=== PATIENT | male | born 1950 | race African-American/Black ===

== ENCOUNTER 2022-11-11 22:56 | Inpatient (IN) | payer MEDICAID, MEDICARE ==
[~2022-11-11] VITALS: Ht 180.3 cm; Wt 70.8 kg
[2022-11-12 00:07] LABS: BASOPHILS % 0.2 % (0.0-2.0); EOSINOPHILS % 5.2 % (0.0-5.0); HEMATOCRIT. 36.3 % (42.0-52.0); HEMOGLOBIN. 11.8 g/dL (14.0-18.0); LYMPHOCYTES % 27.5 % (20.0-50.0); MEAN CORPUSCULAR HEMOGLOBIN 29.7 pg (28.0-32.0); MEAN CORPUSCULAR HGB CONC 32.5 g/dL (31.0-37.0); MEAN CORPUSCULAR VOLUME 91.3 fL (80.0-94.0); MEAN PLATELET VOLUME 7.5 fl (7.4-10.4); MONOCYTES % 6.7 % (2.0-8.0); NEUTROPHILS % 60.4 % (40.0-76.0); PLATELET 199 x1000/uL (130-400); RED BLOOD CELL COUNT 3.97 mill/uL (4.7-6.1); WHITE BLOOD COUNT 8.6 x1000/uL (4.5-11.0)
[2022-11-12 00:18] LABS: CHLORIDE 102 mEq/L (98-107); INDEX HEMOLYSI 1 (1-3); INDEX ICTERIC 1 (1-4); INDEX LIPEMIC 1 (1-3); POTASSIUM 4.7 mEq/L (3.5-5.1); SODIUM 137 mEq/L (136-145)
[2022-11-12 00:31] LABS: ALANINE AMINOTRANSFERASE 12 IU/L (13-61); ALBUMIN 3.2 g/dL (3.4-5.0); ASPARTATE AMINOTRANSFERASE 10 IU/L (15-37); BILIRUBIN TOTAL 0.4 mg/dL (0.1-1.0); CALCIUM 9.1 mg/dL (8.5-10.1); CARBON DIOXIDE 31 mEq/L (21-32); CREATININE 0.7 mg/dL (0.6-1.3); GLUCOSE 95 mg/dL (70-105); NT PRO B-TYPE NATRIURETIC PEP 202 pg/mL (5-125); PROTEIN TOTAL 7.1 g/dL (6.0-8.3); TROPONIN I HIGH SENSITIVITY 6 ng/L (<78); UREA NITROGEN BLOOD 18 mg/dL (7-21)
[2022-11-12] MEDS ORDERED: ALBUTEROL (0.083%) 2.5MG/3ML NEB HHN STA (00:40)
[2022-11-12] MEDS ORDERED: METHYLPREDNISOLONE SOD SUCC 125MG/2ML (ACT-O-VIAL) IV STA (00:40)
[2022-11-12] MEDS ORDERED: IPRATROPIUM BROMIDE (0.02%) 0.5MG/2.5ML NEB HHN STA (00:40)
[2022-11-12 02:03] VITALS: PULSE 84; RESP 24; O2SAT 97
[2022-11-12 09:40] VITALS: BP 162/75; PULSE 66; RESP 19; TEMP 97.2
[2022-11-12] MEDS ORDERED: AMLODIPINE 10MG TABLET PO SCH (11:00)
[2022-11-12 12:00] VITALS: BP 138/88; PULSE 20; RESP 20; TEMP 97.8
[2022-11-12] MEDS ORDERED: IPRATROPIUM/ALBUTEROL 0.5-3(2.5)MG/3ML NEB HHN SCH (12:00)
[2022-11-12] MEDS ORDERED: FAMOTIDINE 20MG TABLET PO SCH ×2 (12:00→21:00)
[2022-11-12] MEDS ORDERED: METHYLPREDNISOLONE SOD SUCC 40MG/ML (ACT-O-VIAL) IV SCH (14:00)
[2022-11-12 16:00] VITALS: BP 152/89; PULSE 86; RESP 20; TEMP 97.5
[2022-11-12 17:04] VITALS: BP 152/89; PULSE 94; TEMP 97.5; O2SAT 86
== END 2022-11-12 17:45 | disposition home or self-care (01) | DRG 189 ==
LOC: ER 22:56 → 7WST 11-12 01:38
PROVIDERS: ADMIT Internal Medicine; ATTEND Internal Medicine
DX: J96.00 Acute respiratory failure, unspecified whether with hypoxia or hypercapnia (principal); J44.1 Chronic obstructive pulmonary disease with (acute) exacerbation; F17.210 Nicotine dependence, cigarettes, uncomplicated; R13.10 Dysphagia, unspecified; N40.0 Benign prostatic hyperplasia without lower urinary tract symptoms; I10 Essential (primary) hypertension; Z86.73 Personal history of transient ischemic attack (TIA), and cerebral infarction without residual deficits; Z85.118 Personal history of other malignant neoplasm of bronchus and lung
CPT/HCPCS: 36415; 71045; 80053; 83880; 84484; 85025; 93005; 94640; 99285; J2920; J2930

== ENCOUNTER 2024-03-23 17:19 | Inpatient (IN) | payer MEDICARE ==
[~2024-03-23] VITALS: Ht 182.9 cm; Wt 66.2 kg
[~2024-03-23 17:19] MED LIST: AMOX1TAB16 MT; APIX5TAB PO; ATOR10TA PO; AZIT500T8 MT; FLUT1DIS3 INH; METH4TAB95 MT
[2024-03-23] MEDS: METHYLPREDNISOLONE SOD SUCC 125MG/2ML (ACT-O-VIAL) IV ONE (18:03)
[2024-03-23 18:10] LABS: BASOPHILS % 0.6 % (0.0-2.0); DIFFERENTIAL COMMENT 0; EOSINOPHILS % 0.5 % (0.0-5.0); HEMATOCRIT. 38.4 % (42.0-52.0); HEMOGLOBIN. 11.9 g/dL (14.0-18.0); LYMPHOCYTES % 14.2 % (20.0-50.0); MEAN CORPUSCULAR HEMOGLOBIN 31.3 pg (28.0-32.0); MEAN CORPUSCULAR VOLUME 100.9 fL (80.0-94.0); MONOCYTES % 6.7 % (2.0-8.0); PLATELET 185 x1000/uL (130-400); RED BLOOD CELL COUNT 3.81 mill/uL (4.7-6.1); RED CELL DISTRIBUTION WIDTH 16.6 % (11.6-14.6); WHITE BLOOD COUNT 5.2 x1000/uL (4.5-11.0)
[2024-03-23 18:18] LABS: CHLORIDE 106 mEq/L (98-107); POTASSIUM 6.1 mEq/L (3.5-5.1); SODIUM 143 mEq/L (136-145)
[2024-03-23 18:19] LABS: CALCIUM 9.1 mg/dL (8.7-10.4); CARBON DIOXIDE 34 mEq/L (21-32)
[2024-03-23 18:24] LABS: CREATININE 0.7 mg/dL (0.6-1.3); GLUCOSE 102 mg/dL (70-105); UREA NITROGEN BLOOD 12 mg/dL (9-23)
[2024-03-23 18:25] LABS: TROPONIN I HIGH SENSITIVITY 11 ng/L (3.0-53)
[2024-03-23 20:13] LABS: CHLORIDE 116 mEq/L (98-107); SODIUM 148 mEq/L (136-145)
[2024-03-23 20:14] LABS: CARBON DIOXIDE 26 mEq/L (21-32)
[2024-03-23 20:15] LABS: CALCIUM 6.6 mg/dL (8.7-10.4)
[2024-03-23 20:19] LABS: CREATININE 0.5 mg/dL (0.6-1.3); GLUCOSE 123 mg/dL (70-105); UREA NITROGEN BLOOD 10 mg/dL (9-23)
[2024-03-23] MEDS: IPRATROPIUM/ALBUTEROL 0.5-3(2.5)MG/3ML NEB HHN ONE (20:33)
[2024-03-23 20:36] LABS: POTASSIUM 3.4 mEq/L (3.5-5.1)
[2024-03-23] MEDS ORDERED: HYDRALAZINE 20MG/ML VIAL IV PRN (23:30)
[2024-03-23] MEDS ORDERED: ONDANSETRON HCL 4MG/2ML INJ IV PRN (23:30)
[2024-03-23] MEDS ORDERED: DEXTROSE 50% WATER 50ML SYRINGE IV PRN (23:30)
[2024-03-23] MEDS ORDERED: DOCUSATE SODIUM 100MG CAPSULE PO PRN (23:30)
[2024-03-24] VITALS (9 sets, daily range): BP systolic 110–137; BP diastolic 67–88; PULSE 73–95; RESP 18–20; TEMP 36.2–36.8; O2SAT 96–100
[2024-03-24] MEDS ORDERED: IPRATROPIUM BROMIDE (0.02%) 0.5MG/2.5ML NEB HHN PRN (00:15)
[2024-03-24 00:27] LABS: IRON 25 ug/dL (65-175)
[2024-03-24 00:28] LABS: CREATINE KINASE MB FRACTION 1.2 ng/mL (0.5-3.6); LDL CHOLESTEROL 57 mg/dL (5-100); TRIGLYCERIDE 46 mg/dL (0-150); TROPONIN I HIGH SENSITIVITY 10 ng/L (3.0-53)
[2024-03-24 00:29] LABS: CREATINE KINASE 31 IU/L (46-171); HDL CHOLESTEROL 48 mg/dL (>55)
[2024-03-24 00:30] LABS: CHOLESTEROL 124 mg/dL (<200); PHOSPHORUS 3.2 mg/dL (2.5-4.9); TOTAL IRON BINDING CAPACITY 274 ug/dl (250-425)
[2024-03-24 00:32] LABS: FERRITIN 255 ng/mL (22-322); T4 FREE 0.94 ng/dL (0.89-1.76); THYROID STIMULATING HORMONE 0.39 uIU/mL (0.55-4.78); VITAMIN B12 SERUM 799 pg/mL (211-911)
[2024-03-24] MEDS: ACETAMINOPHEN 325MG TABLET PO PRN (01:01)
[2024-03-24 01:18] LABS: CLARITY URINE CLEAR (CLEAR); COLOR URINE DARK YELLOW (YELLOW); GLUCOSE URINE 1+ (NEGATIVE); KETONES URINE NEGATIVE (NEGATIVE); LEUKOCYTE ESTERASE URINE NEGATIVE (NEGATIVE); NITRITE URINE NEGATIVE (NEGATIVE); OCCULT BLOOD URINE NEGATIVE (NEGATIVE); PROTEIN URINE 1+ (NEGATIVE); SPECIFIC GRAVITY URINE 1.028 (1.005-1.030)
[2024-03-24 01:32] LABS: *AMPHETAMINES SCREEN URINE NEGATIVE (NEGATIVE); *BARBITURATES SCREEN URINE NEGATIVE (NEGATIVE); *BENZODIAZEPINES SCREEN URINE NEGATIVE (NEGATIVE); *COCAINE SCREEN URINE NEGATIVE (NEGATIVE)
[2024-03-24 01:33] LABS: CANNABINOID URINE SCREEN PRESUMPTIVE POSITIVE (NEGATIVE); ECSTASY MDMA SCREEN URINE NEGATIVE (NEGATIVE); METHADONE URINE SCREEN NEGATIVE (NEGATIVE); OPIATES URINE SCREEN PRESUMPTIVE POSITIVE (NEGATIVE); PHENCYCLIDINE URINE SCREEN NEGATIVE (NEGATIVE)
[2024-03-24] MEDS ORDERED: HYDR-4001 PO (01:50)
[2024-03-24] MEDS ORDERED: VALS160T28 PO (01:50)
[2024-03-24 02:06] LABS: MUCUS URINE 1+ /lpf (NONE/TRACE); SQUAMOUS EPITHELIAL CELL URINE FEW /lpf (RARE/1+)
[2024-03-24 02:07] LABS: BACTERIA URINE TRACE; RBC URINE 0-2 /hpf (0-2); WBC URINE 0-2 /hpf (0-2)
[2024-03-24] MEDS: DEXTROSE 5% WATER 1,000 ML IV NR (02:45)
[2024-03-24] MEDS: POTASSIUM CHLORIDE 20MEQ TABLET SR PO NR (02:52)
[2024-03-24] MEDS: MAGNESIUM 2 G PREMIX 50 ML IV NR (04:00)
[2024-03-24] MEDS: METHYLPREDNISOLONE SOD SUCC 40MG/ML (ACT-O-VIAL) IV SCH (05:58)
[2024-03-24 06:12] LABS: CARBON DIOXIDE 35 mEq/L (21-32); CHLORIDE 104 mEq/L (98-107); POTASSIUM 4.6 mEq/L (3.5-5.1); SODIUM 143 mEq/L (136-145)
[2024-03-24 06:13] LABS: CALCIUM 8.7 mg/dL (8.7-10.4)
[2024-03-24 06:17] LABS: CREATININE 0.7 mg/dL (0.6-1.3)
[2024-03-24 06:18] LABS: GLUCOSE 246 mg/dL (70-105); UREA NITROGEN BLOOD 14 mg/dL (9-23)
[2024-03-24 06:19] LABS: ALANINE AMINOTRANSFERASE 9 IU/L (10-49); ALBUMIN 3.3 g/dL (3.2-4.8)
[2024-03-24 06:20] LABS: ASPARTATE AMINOTRANSFERASE 11 IU/L (<34); BILIRUBIN TOTAL 0.5 mg/dL (0.1-1.0)
[2024-03-24 06:47] LABS: BASOPHILS % 0.2 % (0.0-2.0); HEMATOCRIT. 35.5 % (42.0-52.0); HEMOGLOBIN. 11.2 g/dL (14.0-18.0); LYMPHOCYTES % 11.9 % (20.0-50.0); MEAN CORPUSCULAR HEMOGLOBIN 31.3 pg (28.0-32.0); MEAN CORPUSCULAR HGB CONC 31.5 g/dL (31.0-37.0); MEAN CORPUSCULAR VOLUME 99.2 fL (80.0-94.0); MEAN PLATELET VOLUME 7.7 fl (7.4-10.4); MONOCYTES % 1.8 % (2.0-8.0); NEUTROPHILS % 86.1 % (40.0-76.0); PLATELET 190 x1000/uL (130-400); RED BLOOD CELL COUNT 3.58 mill/uL (4.7-6.1); RED CELL DISTRIBUTION WIDTH 15.5 % (11.6-14.6); WHITE BLOOD COUNT 2.8 x1000/uL (4.5-11.0)
[2024-03-24] MEDS: BLOOD SUGAR DIAGNOSTIC STRIP TEST SCH (07:21)
[2024-03-24] MEDS: APIXABAN 5 MG TABLET PO SCH (08:27)
[2024-03-24] MEDS: AZITHROMYCIN 500 MG TABLET PO SCH (08:27)
[2024-03-24] MEDS: IPRATROPIUM BROMIDE (0.02%) 0.5MG/2.5ML NEB HHN SCH (09:01)
[2024-03-24] MEDS: ACETYLCYSTEINE 200MG/ML 20% VIAL 4ML INH SCH (09:01)
[2024-03-24] MEDS: FERROUS SULFATE 325MG TABLET PO NR (09:15)
[2024-03-24] MEDS ORDERED: NALOXONE HCL 0.4MG/ML VIAL IV PRN (12:30)
[2024-03-24] MEDS: INSULIN LISPRO 100 UNITS/ML SUBCUT SCH (13:29)
[2024-03-24] MEDS: HYDROCODONE/ACETAMINOPHEN 5/325MG TABLET PO PRN (17:06)
[2024-03-24] MEDS: ATORVASTATIN CALCIUM 10MG TABLET PO SCH (21:12)
[2024-03-25] VITALS (11 sets, daily range): BP systolic 126–145; BP diastolic 80–93; PULSE 73–92; RESP 16–20; TEMP 36.2–36.5; O2SAT 94–98
[2024-03-25 06:30] LABS: CHLORIDE 100 mEq/L (98-107); POTASSIUM 5.4 mEq/L (3.5-5.1); SODIUM 137 mEq/L (136-145)
[2024-03-25 06:31] LABS: CARBON DIOXIDE 36 mEq/L (21-32)
[2024-03-25 06:36] LABS: CREATININE 0.7 mg/dL (0.6-1.3); GLUCOSE 134 mg/dL (70-105); UREA NITROGEN BLOOD 16 mg/dL (9-23)
[2024-03-25 06:37] LABS: ALANINE AMINOTRANSFERASE 11 IU/L (10-49)
[2024-03-25 06:38] LABS: ALBUMIN 3.2 g/dL (3.2-4.8); ASPARTATE AMINOTRANSFERASE 16 IU/L (<34)
[2024-03-25 06:39] LABS: BILIRUBIN TOTAL 0.4 mg/dL (0.1-1.0); PROTEIN TOTAL 5.5 g/dL (6.0-8.3)
[2024-03-25] MEDS: SODIUM ZIRCONIUM CYCLOSILICATE 10GM/PACKET PO NR (08:32)
[2024-03-25 09:09] LABS: FOLATE HEMATOCRIT 36.5 % (37.5-51.0)
[2024-03-25 11:23] LABS: HEMATOCRIT. 35.2 % (42.0-52.0); HEMOGLOBIN. 11.2 g/dL (14.0-18.0); MEAN CORPUSCULAR HEMOGLOBIN 31.3 pg (28.0-32.0); MEAN CORPUSCULAR HGB CONC 31.7 g/dL (31.0-37.0); MEAN CORPUSCULAR VOLUME 98.5 fL (80.0-94.0); MEAN PLATELET VOLUME 7.9 fl (7.4-10.4); PLATELET 208 x1000/uL (130-400); RED BLOOD CELL COUNT 3.58 mill/uL (4.7-6.1); RED CELL DISTRIBUTION WIDTH 15.1 % (11.6-14.6); WHITE BLOOD COUNT 8.3 x1000/uL (4.5-11.0)
[2024-03-25 11:29] LABS: POTASSIUM 4.4 mEq/L (3.5-5.1)
[2024-03-25 11:30] LABS: DIFFERENTIAL COMMENT 1
[2024-03-25] MEDS ORDERED: AZIT250T12 PO (12:52)
[2024-03-25] MEDS ORDERED: METH4TAB95 MT (12:52)
[2024-03-25 13:07] LABS: FOLATE RBC 1164 ng/mL (>498)
[2024-03-25 14:00] LABS: PLATELET ESTIMATE NORMAL
[2024-03-26] VITALS (7 sets, daily range): BP systolic 106–154; BP diastolic 43–101; PULSE 75–93; RESP 16–20; TEMP 36.1–36.6; O2SAT 96–100
[2024-03-26 07:18] LABS: HEMATOCRIT. 33.5 % (42.0-52.0); MEAN CORPUSCULAR HEMOGLOBIN 31.8 pg (28.0-32.0); MEAN CORPUSCULAR VOLUME 96.6 fL (80.0-94.0); MEAN PLATELET VOLUME 7.7 fl (7.4-10.4); PLATELET 208 x1000/uL (130-400); RED BLOOD CELL COUNT 3.47 mill/uL (4.7-6.1); RED CELL DISTRIBUTION WIDTH 14.6 % (11.6-14.6); WHITE BLOOD COUNT 8.1 x1000/uL (4.5-11.0)
[2024-03-26 07:32] LABS: CARBON DIOXIDE 36 mEq/L (21-32); CHLORIDE 97 mEq/L (98-107); POTASSIUM 4.8 mEq/L (3.5-5.1); SODIUM 136 mEq/L (136-145)
[2024-03-26 07:38] LABS: CREATININE 0.6 mg/dL (0.6-1.3); GLUCOSE 110 mg/dL (70-105); UREA NITROGEN BLOOD 18 mg/dL (9-23)
[2024-03-26 07:46] LABS: DIFFERENTIAL COMMENT 1
[2024-03-27] VITALS: BP 121/69; PULSE 69; RESP 18; TEMP 36.2; O2SAT 98
[2024-03-27 04:00] VITALS: BP 155/90; PULSE 67; RESP 20; TEMP 36.2; O2SAT 95
[2024-03-27 08:00] VITALS: BP 153/84; PULSE 90; RESP 20; TEMP 36.3; O2SAT 98
[2024-03-27 08:20] VITALS: PULSE 65; RESP 16
[2024-03-27 08:32] VITALS: BP 155/90; PULSE 65; RESP 16
[2024-03-27] MEDS ORDERED: BENZONATATE 100MG CAPSULE PO NR (10:30)
[2024-03-27] MEDS ORDERED: BENZONATATE 100MG CAPSULE PO PRN (10:30)
[2024-03-27] MEDS ORDERED: AMLODIPINE 5MG TABLET PO SCH (16:30)
[2024-03-27 17:26] LABS: PLATELET ESTIMATE NORMAL
== END 2024-03-27 11:25 | disposition home or self-care (01) | DRG 189 ==
LOC: ER 17:19 → 7WST 22:18
PROVIDERS: ADMIT Hospitalist; ATTEND Hospitalist
DX: J96.01 Acute respiratory failure with hypoxia (principal); J44.1 Chronic obstructive pulmonary disease with (acute) exacerbation; E87.0 Hyperosmolality and hypernatremia; E87.5 Hyperkalemia; E83.42 Hypomagnesemia; D53.9 Nutritional anemia, unspecified; E87.6 Hypokalemia; G89.29 Other chronic pain; M54.9 Dorsalgia, unspecified; E78.5 Hyperlipidemia, unspecified; R73.9 Hyperglycemia, unspecified; R07.89 Other chest pain; R59.0 Localized enlarged lymph nodes; I10 Essential (primary) hypertension; I27.20 Pulmonary hypertension, unspecified; J84.10 Pulmonary fibrosis, unspecified; R73.03 Prediabetes; Z79.01 Long term (current) use of anticoagulants; Z86.73 Personal history of transient ischemic attack (TIA), and cerebral infarction without residual deficits; Z99.81 Dependence on supplemental oxygen; Z92.21 Personal history of antineoplastic chemotherapy; Z85.118 Personal history of other malignant neoplasm of bronchus and lung; Z86.711 Personal history of pulmonary embolism; Z79.899 Other long term (current) drug therapy; Z79.51 Long term (current) use of inhaled steroids
CPT/HCPCS: 36415; 71045; 80048; 80053; 80061; 80305; 81003; 82306; 82550; 82553; 82607; 82728; 82747; 82962; 83036; 83540; 83550; 83605; 83735; 83880; 83935; 84100; 84132; 84145; 84439; 84443; 84484; 85014; 85025; 87804; 93005; 93306; 93970; 94070; 94640; 94664; 99285; A4606; J1815; J2919; J2920; J3475; J7608